=== PATIENT | female | born 1980 | race Caucasian/White ===

== ENCOUNTER 2017-12-29 16:32 | Emergency (ER) | payer MEDICAID ==
[~2017-12-29] VITALS: Ht 154.9 cm; Wt 81.6 kg
[2017-12-29 16:48] VITALS: BP 100/67
[2017-12-29] MEDS ORDERED: KETOROLAC TROMETH 60MG/2ML VIAL IM ONE (23:30)
== END 2017-12-30 00:10 | disposition home or self-care (01) ==
LOC: ER 16:32
DX: S32.039A Unspecified fracture of third lumbar vertebra, initial encounter for closed fracture (principal); Z88.0 Allergy status to penicillin; Z90.49 Acquired absence of other specified parts of digestive tract; W22.8XXA Striking against or struck by other objects, initial encounter; Y93.89 Activity, other specified; Y99.8 Other external cause status; Y92.89 Other specified places as the place of occurrence of the external cause
CPT/HCPCS: 70450; 71046; 72100; 72125; 73070; 73564; 73610; 96372; 99284; J1885